=== PATIENT | female | born 1955 | race Caucasian/White ===

== ENCOUNTER 2024-09-10 23:46 | Emergency (ER) | payer MEDICARE, MEDICAID ==
[~2024-09-10] VITALS: Ht 154.9 cm; Wt 71.0 kg
[2024-09-11] VITALS: O2SAT 97
[2024-09-11 00:14] VITALS: BP 168/69; PULSE 98; RESP 18; TEMP 36.9; O2SAT 97
[2024-09-11] MEDS ORDERED: ACET-2708 MT (00:39)
== END 2024-09-11 01:49 | disposition home or self-care (01) ==
LOC: ER 09-11 00:15
DX: I10 Essential (primary) hypertension (principal); F19.90 Other psychoactive substance use, unspecified, uncomplicated
CPT/HCPCS: 99282